=== PATIENT | male | born 1995 | race Caucasian/White ===

== ENCOUNTER 2017-04-06 23:42 | Emergency (ER) | payer OTHER ==
[~2017-04-06] VITALS: Ht 162.6 cm; Wt 70.3 kg
[2017-04-06 23:46] VITALS: Ht 162.6 cm; Wt 70.3 kg
[2017-04-07 02:12] VITALS: BP 105/68
== END 2017-04-07 02:12 | disposition home or self-care (01) ==
LOC: ED 23:42
DX: S96.912A Strain of unspecified muscle and tendon at ankle and foot level, left foot, initial encounter (principal); R07.89 Other chest pain; X58.XXXA Exposure to other specified factors, initial encounter; Y93.89 Activity, other specified; Y99.8 Other external cause status; Y92.59 Other trade areas as the place of occurrence of the external cause
CPT/HCPCS: Q0092